=== PATIENT | female | born 1970 | race Caucasian/White ===

== ENCOUNTER 2018-08-26 14:10 | Emergency (ER) | payer OTHER ==
[2018-08-26 14:16] VITALS: BP 107/82
--- NOTE | 2018-08-26 14:40 | EDPHY ---
H & P Stated Complaint: L ear pain x1MO. Denies drainage. Time Seen by Provider: 08/26/18 14:30 - Personal History Current Tetanus/Diphtheria Vaccine: No - Medical/Surgical History Hx Asthma: No Hx Chronic Respiratory Disease: No Hx Diabetes: No Hx Cardiac Disease: No Hx Renal Disease: No Hx Cirrhosis: No Hx Alcoholism: No Hx HIV/AIDS: No Hx Splenectomy or Spleen Trauma: No Other PMH: none - Social History Smoking Status: Heavy smoker Constitutional: Initial Vital Signs Temperature (C) 36.8 C 08/26/18 14:14 Heart Rate 83 08/26/18 14:14 Respiratory Rate 16 08/26/18 14:14 Blood Pressure 107/82 H 08/26/18 14:14 O2 Sat (%) 97 08/26/18 14:14 O2 Delivery Mode Room Air Allergies/Adverse Reactions: No Known Allergies Allergy (Unverified 08/26/18 14:14) Home Medications: Medication Instructions Recorded NK [No Known Home Meds] 08/26/18 Medical Decision Making ED Course/Re-evaluation: CHIEF COMPLAINT: Left ear pain and decreased hearing HISTORY OF PRESENT ILLNESS: 48-year-old female who states that she has had some left ear pain which is worsened and decreased hearing over the last month. She denies any fevers or chills. She denies sore throat. She denies an upper respiratory infection. REVIEW OF SYSTEMS: A comprehensive 10 system review of systems is otherwise negative aside from elements mentioned in the history of present illness and medical decision making. PHYSICAL EXAM: HR, BP, O2 Sat, RR. Temp noted General Appearance: Alert, well hydrated, appropriate, and non-toxic appearing. Head: Atraumatic without scalp tenderness or obvious injury Eyes: Pupils equal, round, reactive to light and accommodation, EOMI, no trauma , no injection. Ears: Left ear is occluded with cerumen I cannot appreciate the drum. I will re-examine after the ear is irrigated. Clear bilaterally, no perforation, normal landmarks Nose: Atraumatic, no rhinorrhea, clear. Throat: There is no erythema or exudates, no lesions, normal tonsils, mucus membranes moist. Neck: Supple, 2+ carotid upstroke, nontender, no lymphadenopathy. Respiratory: No retractions, no distress, no wheezes, and no accessory muscle use. Lungs are clear to auscultation bilaterally. Cardiovascular: Regular rate and rhythm, no murmurs, rubs, or gallops. Bilateral carotid, radial, dorsalis pedis, and posterior tibial pulses intact. Good capillary refill all extremities. Gastrointestinal: Abdomen is soft, nontender, non-distended, no masses, no rebound, no guarding, no peritoneal signs. Musculoskeletal: Normal active ROM of all extremities, atraumatic. Neurological: Alert, appropriate, and interactive. The patient has normal DTRs and non-focal cranial nerves, motor, sensory, and cerebellar exam. Skin: No rashes, good turgor, no nodules on palpation. Past medical history: Patient denies Past surgical history: Patient denies Family history: Noncontributory Social history: Employed, does not abuse tobacco drugs or alcohol DIAGNOSTICS/PROCEDURES/CRITICAL CARE TIME: None indicated DIFFERENTIAL DIAGNOSIS: Includes but is not limited to: Cerumen impaction, otitis media, otitis externa, mastoiditis MEDICAL DECISION MAKING: This patient has cerumen impaction of the left ear. The right ear is fairly clear. We will irrigate the canal and I will re- examine the patient. The tympanic membrane is normal nerves normal landmarks after irrigation. There is no evidence of infection. Departure - Departure Disposition: Home, Routine, Self-Care Clinical Impression: Impacted cerumen of left ear Condition: Good Instructions: Cerumen Impaction (ED)
== END 2018-08-26 14:58 | disposition home or self-care (01) ==
PROC: 3E1B78Z Irrigation of Ear using Irrigating Substance, Via Natural or Artificial Opening (ICD-10-PCS; principal; 2018-08-26)
DX: H61.22 Impacted cerumen, left ear (principal)

== ENCOUNTER 2018-10-19 00:38 | Emergency (ER) | payer OTHER ==
--- NOTE | 2018-10-19 00:59 | EDPHY ---
H & P Stated Complaint: L wrist lac, cuevas fell on it at work Time Seen by Provider: 10/19/18 00:41 HPI/ROS: HPI The patient presents with laceration to extensor surface of left wrist which occurred about 2 hr ago while at work. Patient was washing dishes and a sharp metal hand cut her wrist. She had bleeding and pain immediately. She has no foreign body sensation. She denies any numbness or tingling to her wrist or hand. She has no trouble moving her wrist. Her tetanus vaccine is up to date. REVIEW OF SYSTEMS 10 systems were reviewed and negative with the exception of the elements mentioned in the history of present illness. PMHx: Healthy Soc Hx: , works as a content administrator for a food [employer] PHYSICAL General Appearance: Alert, no distress Eyes: Pupils equal and round Respiratory: Breathing comfortably Neurological: A&O, sensation intact to light touch throughout left hand, full range of motion of her left wrist somewhat limited by pain Skin: Warm and dry, 2.5 cm laceration which is transverse of the left wrist extensor surface about 1 cm proximal to the joint space, overlying the radial aspect of the wound there is an extensor tendon complete laceration, unable to visualize distal component Extremities: symmetrical, full range of motion Psychiatric: Patient is oriented X 3, there is no agitation Source: Patient Exam Limitations: No limitations - Personal History LMP (Females 10-55): Hysterectomy Current Tetanus/Diphtheria Vaccine: Yes Current Tetanus Diphtheria and Acellular Pertussis (TDAP): Yes - Medical/Surgical History Hx Asthma: No Hx Chronic Respiratory Disease: No Hx Diabetes: No Hx Cardiac Disease: No Hx Renal Disease: No Hx Cirrhosis: No Hx Alcoholism: No Hx HIV/AIDS: No Hx Splenectomy or Spleen Trauma: No Other PMH: Hysterectomy - Social History Smoking Status: Heavy smoker Constitutional: Initial Vital Signs Temperature (C) 36.7 C 10/19/18 00:41 Heart Rate 94 10/19/18 00:41 Respiratory Rate 18 10/19/18 00:41 Blood Pressure 145/95 H 10/19/18 00:41 O2 Sat (%) 96 10/19/18 00:41 O2 Delivery Mode Room Air Allergies/Adverse Reactions: No Known Allergies Allergy (Unverified 08/26/18 14:14) Home Medications: Medication Instructions Recorded Cephalexin [Keflex (*)] 500 mg PO Q6H #28 cap 10/19/18 Medical Decision Making Procedures: LACERATION REPAIR Procedure: Laceration repair. Verbal consent was obtained from the patient. The linear 2.5 cm laceration on the left wrist was anesthetized using lidocaine. The wound was scrubbed, draped and explored to its base with a gloved finger. There were no deep structures involved. No tendon injury was identified. The wound required extensive debridement . The wound was repaired with 4-0 Prolene sutures, horizontal mattress. The wound repair was simple. The procedure was performed by myself. Differential Diagnosis: 48-year-old female who is left-hand dominant presents with left wrist laceration which occurred about 2 hr ago while washing dishes. Bleeding is controlled. Patient is neurovascularly intact. There is an extensor tendon complete laceration. The wound approximates easily. The wound was repaired by me. Patient tolerated procedure well. Her tetanus vaccine does not need to be updated. Given extensor tendon laceration, she will need hand specialist follow-up. I have not repair the extensor tendon myself as I cannot locate the distal fragment. I have referred her to Dr. Kwon the on-call hand specialist. I explained that she will need to call in the morning to arrange for follow-up within the next several days. We will start her on Keflex and place her in a splint. She does not want this to be a worker's Comp case. She will be discharged home. - Data Points Medications Given: Discontinued Medications Acetaminophen (Tylenol) 1,000 mg PO EDNOW ONE Stop: 10/19/18 01:18 Last Admin: 10/19/18 01:26 Dose: 1,000 mg Cephalexin (Keflex 500 Mg Prepack#4) 1 btl TAKEHOME EDNOW ONE PRN Reason: Protocol Stop: 10/19/18 01:18 Last Admin: 10/19/18 01:27 Dose: 1 btl Cephalexin HCl (Keflex) 500 mg PO EDNOW ONE PRN Reason: Protocol Stop: 10/19/18 01:18 Last Admin: 10/19/18 01:26 Dose: 500 mg Ibuprofen (Motrin) 600 mg PO EDNOW ONE Stop: 10/19/18 01:18 Last Admin: 10/19/18 01:26 Dose: 600 mg Departure - Departure Disposition: Home, Routine, Self-Care Clinical Impression: Laceration of left wrist Qualifiers: Encounter type: initial encounter Qualified Code(s): S61.512A - Laceration without foreign body of left wrist, initial encounter Extensor tendon laceration of left wrist with open wound Qualifiers: Encounter type: initial encounter Qualified Code(s): S66.922A - Laceration of unspecified muscle, fascia and tendon at wrist and hand level, left hand, initial encounter Condition: Good Instructions: Cephalexin (By mouth), Care For Your Stitches (ED), Laceration ( ED) Additional Instructions: You will need to follow up with the hand specialist Dr. Kwon sometime this week. Please call his office 1st thing this morning to ask for an appointment. Please keep the splint on at all times. Leave our dressing on for the next 48 hr. Then it is okay to take the dressing off to get the wound wet. Return to the emergency department for any redness, swelling, warmth, drainage from the wound. Referrals: Melvi Kwon MD [Medical Doctor] - As per Instructions [facility],. [Clinic] - As per Instructions Prescriptions: Cephalexin [Keflex (*)] 500 mg PO Q6H #28 cap
[2018-10-19] MEDS ORDERED: IBUPROFEN 200 MG TAB PO ONE (01:17)
[2018-10-19] MEDS ORDERED: ACETAMINOPHEN 500 MG TAB PO ONE (01:17)
[2018-10-19] MEDS ORDERED: CEPHALEXIN 500 MG CAP PO ONE (01:17)
[2018-10-19] MEDS ORDERED: CEPHALEXIN 500MG PREPACK#4 BTL TAKEHOME ONE (01:17)
[2018-10-19 01:45] VITALS: BP 124/76
--- NOTE | 2018-10-20 16:57 | ASMTCMCOM ---
CM Note CM Note Notes: Received a CM consult request yesterday to followup with pt and ensure she follows up with Dr Kwon at [facility] ([phone]). This CM called [facility] yesterday morning and they said pt had not called and made an appt yet. This CM called and spoke w/ the pt (c:[phone]) and she said she plans on calling Friday. Pt aware that CM will followup with her on Friday to see if she needed any further assistance; pt appreciative for followup calls and assistance. Today this CM called [facility] around 1430 and they said pt still had not called and made an appt. This CM called the pt but there was no answer and it just kept ringing and never went to a voicemail. CM available for further assistance if needed. Date Signed: 10/20/2018 04:56 PM Electronically Signed By:Glory Worrell RN
== END 2018-10-19 01:44 | disposition home or self-care (01) ==
PROC: 0HQEXZZ Repair Left Lower Arm Skin, External Approach (ICD-10-PCS; principal; 2018-10-19)
DX: S61.512A Laceration without foreign body of left wrist, initial encounter (principal); W26.8XXA Contact with other sharp object(s), not elsewhere classified, initial encounter; Y93.G1 Activity, food preparation and clean up
CPT/HCPCS: L3984